=== PATIENT | female | born 1960 | race African-American/Black ===

== ENCOUNTER → 2017-02-15 | Outpatient (CLI) | payer BC ==
[~2017-02-15] VITALS: Ht 157.5 cm; Wt 145.1 kg
[~2017-02-15] MED LIST: ABIL5TAB14 PO; ALBUAER3 INH; ASPI1TAB57 PO; BUPR300T PO; CHLORHEXIDINE GLUCONATE 2 % 1 PACK (2 CLOTHS) TOPICAL PRN; FLUT1INH INH; GLIP10TA6 PO; INSULIN HUMAN REGULAR 1,000 UNITS/10 ML VIAL SQ PRN; LACTATED RINGER'S 1000 ML IV PRN; LIDOCAINE HCL 1% PF 5 ML AMPULE OTHER ONE; LISI40TA PO; METF1000 PO; METOPROLOL TARTRATE 25 MG TAB PO PRN; METOPROLOL TARTRATE 5 MG/5 ML VIAL IV PUSH ONE; POVIDONE IODINE 5% (ANTISEPSIS KIT) 4 APPLICATIONS EACH NARE PRN; PROPOFOL 200 MG/20 ML AMP IV ONE; SODIUM CHLORID 0.9% 500 ML IV PRN; TRAM50TA PO; TRAZ100T10 PO; VICT18IN SQ; VITA100064 PO
[2017-02-15 11:55] LABS: AUTOMATED NEUTROPHIL # 5.5 TH/MM3 (1.8-7.7); BASOPHIL % 0.4 % (0.0-2.0); EOSINOPHIL # 0.2 TH/MM3 (0-0.4); EOSINOPHIL % 2.3 % (0.0-4.0); HEMATOCRIT 36.8 % (35.0-46.0); HEMO FLAGS DIFF FINAL; LYMPH % 26.3 % (9.0-44.0); LYMPHOCYTE # 2.2 TH/MM3 (1.0-4.8); MEAN CELL VOLUME 84.5 FL (80.0-100.0); MEAN CORPUSCULAR HEMOGLOBIN 27.6 PG (27.0-34.0); MEAN CORPUSCULAR HGB CONC 32.7 % (32.0-36.0); PLATELET COUNT 320 TH/MM3 (150-450); RED BLOOD COUNT 4.36 MIL/MM3 (4.00-5.30); RED CELL DISTRIBUTION WIDTH 16.7 % (11.6-17.2); WHITE BLOOD COUNT 8.4 TH/MM3 (4.0-11.0)
[2017-02-15 12:25] LABS: BICARBONATE 30.6 MEQ/L (21.0-32.0)
[2017-02-15 12:26] LABS: POTASSIUM 4.5 MEQ/L (3.5-5.1)
--- NOTE | 2017-02-15 13:14 | GIPROC ---
[facility] [address] [facility]. [facility], [address] EGD PROCEDURE REPORT EXAM DATE: 02/15/2017 PATIENT NAME: Jill Parsons V MR #: [id number] BIRTHDATE: 1960 ATTENDING: Zachery Vaughan MD ORDER #: [id number] TONGUE AND GRO[employer] MACHINE FEEDER: Carmel Haile STATUS: outpatient INDICATIONS: The patient is a 56 yr old female here for an EGD due to heartburn PROCEDURE PERFORMED: EGD w/ biopsy MEDICATIONS: Per Anesthesia and None. TOPICAL ANESTHETIC: none CONSENT: The patient understands the risks and benefits of the procedure and understands that these risks include, but are not limited to: sedation, allergic reaction, infection, perforation and/or bleeding. Alternative means of evaluation and treatment include, among others: physical exam, x-rays, and/or surgical intervention. The patient elects to proceed with this endoscopic procedure. medical equipment was checked for proper function. Hand hygiene and appropriate measures for infection prevention was taken. After the risks, benefits and alternatives of the procedure were thoroughly explained, Informed consent was verified, confirmed and timeout was successfully executed by the treatment team. The patient was anesthetized with anesthesia and the Pentax EG-[id number] endoscope was introduced through the mouth and advanced to the second portion of the duodenum. Small linear ulceration gastritis noted, bx of antrum for h.pylori done. Retroflexed views revealed a small hiatal hernia The gastroscope was then slowly withdrawn and removed. STOMACH: There was mild gastritis in the gastric body. ADVERSE EVENTS: There were no complications. IMPRESSIONS: 1. There was mild gastritis in the gastric body 2. Retroflexed views revealed a hiatal hernia RECOMMENDATIONS: Await biopsy results. Biopsy results will not be ready for 7-10 days. If you don't hear from us in two weeks, call our office for biopsy results. PATIENT CONDITION: fair DISPOSITION: Home REPEAT EXAM: NONE Zachery Vaughan MD eSigned: Zachery Vaughan MD 02/15/2017 1:14 PM cc:
[2017-02-15 13:20] VITALS: BP 118/75; PULSE 91; RESP 20; TEMP 97.6; O2SAT 97
--- NOTE | 2017-02-15 13:56 | EKG ---
Date Performed: 02/15/2017 Time Performed: 11:01:57 PTAGE: 56 years EKG: Sinus rhythm NORMAL ECG INTERPRETATION BASED ON A DEFAULT AGE OF 42 YEARS NO PREVIOUS TRACING DOCTOR: Carl Mayfield Interpretating Date/Time 02/15/2017 13:55:32
== END ==
LOC: HEND 10:39 → EDSTATUS 13:30
PROVIDERS: ATTEND Surgery
DX: K29.00 Acute gastritis without bleeding (principal); K29.50 Unspecified chronic gastritis without bleeding; B96.89 Other specified bacterial agents as the cause of diseases classified elsewhere; R12 Heartburn; Z01.810 Encounter for preprocedural cardiovascular examination
CPT/HCPCS: 00740; 43239; 80048; 85025; 88305; 88312; 93005; J7120

== ENCOUNTER → 2017-06-24 | Outpatient (CLI) | payer BC ==
[~2017-06-24] MED LIST changes: -ASPI1TAB57 PO; -CHLORHEXIDINE GLUCONATE 2 % 1 PACK (2 CLOTHS) TOPICAL PRN; -INSULIN HUMAN REGULAR 1,000 UNITS/10 ML VIAL SQ PRN; -LACTATED RINGER'S 1000 ML IV PRN; -LIDOCAINE HCL 1% PF 5 ML AMPULE OTHER ONE; -METOPROLOL TARTRATE 25 MG TAB PO PRN; -METOPROLOL TARTRATE 5 MG/5 ML VIAL IV PUSH ONE; -POVIDONE IODINE 5% (ANTISEPSIS KIT) 4 APPLICATIONS EACH NARE PRN; -PROPOFOL 200 MG/20 ML AMP IV ONE; -SODIUM CHLORID 0.9% 500 ML IV PRN; -VITA100064 PO
== END ==
LOC: CLAB 07:52
PROVIDERS: ATTEND Nurse Practitioner
DX: A04.8 Other specified bacterial intestinal infections (principal)
CPT/HCPCS: 87338

== ENCOUNTER 2017-07-29 06:58 | Observation (INO) | payer BC, MEDICARE ==
[~2017-07-29] VITALS: Ht 157.5 cm; Wt 145.0 kg
[2017-07-29 07:06] VITALS: BP 156/64; PULSE 75; RESP 18; TEMP 98.3; O2SAT 93
[2017-07-29 07:40] VITALS: BP 164/83; PULSE 63; RESP 17; O2SAT 96
[2017-07-29 07:41] LABS: AUTOMATED NEUTROPHIL # 5.5 TH/MM3 (1.8-7.7); BASOPHIL # 0.1 TH/MM3 (0-0.2); BASOPHIL % 0.8 % (0.0-2.0); EOSINOPHIL # 0.2 TH/MM3 (0-0.4); EOSINOPHIL % 2.1 % (0.0-4.0); HEMOGLOBIN 13.3 GM/DL (11.6-15.3); LYMPH % 25.1 % (9.0-44.0); LYMPHOCYTE # 2.1 TH/MM3 (1.0-4.8); MEAN CELL VOLUME 87.3 FL (80.0-100.0); MEAN CORPUSCULAR HEMOGLOBIN 28.9 PG (27.0-34.0); MEAN CORPUSCULAR HGB CONC 33.1 % (32.0-36.0); MEAN PLATELET VOLUME 8.7 FL (7.0-11.0); MONO % 6.4 % (0.0-8.0); MONOCYTE # 0.5 TH/MM3 (0-0.9); NEUT % 65.6 % (16.0-70.0); PLATELET COUNT 259 TH/MM3 (150-450); RED BLOOD COUNT 4.58 MIL/MM3 (4.00-5.30); RED CELL DISTRIBUTION WIDTH 15.6 % (11.6-17.2); WHITE BLOOD COUNT 8.3 TH/MM3 (4.0-11.0)
--- NOTE | 2017-07-29 07:48 | PD ---
HPI Chief Complaint: Chest Pain Time Seen by Provider: 07:37 Travel History International Travel<30 days: No Contact w/Intl Traveler<30days: No Traveled to known affect area: No History of Present Illness HPI The patient was seen and examined in the presence of the nurse. She complains of chest pain. Location is center sternum. Duration on and off for 1 week. Spells can last an hour or 2. They are not exertional. She describes them primarily as a sharp stabbing pain. However at other times they are more aching. She has minor shortness of breath. She smoked until 8 years ago. Negative stress test 12 years ago but nothing recent. Symptom severity is moderate. No hemoptysis or fever or productive cough. No alleviating factors. No exacerbating factors. PFSH Past Medical History Cancer: No Cardiovascular Problems: No Diabetes: Yes Patient Takes Glucophage: Yes Endocrine: Yes Gastrointestinal Disorders: Yes (GERD) Genitourinary: No Hepatitis: No Hiatal Hernia: No Hypertension: Yes Immune Disorder: No Musculoskeletal: Yes (OA) Neurologic: No Psychiatric: Yes (ANXIETY, DEPRESSION) Reproductive: No Respiratory: Yes (ASTHMA) Thyroid Disease: No Influenza Vaccination: Yes ?: Not Past Surgical History Abdominal Surgery: No AICD: No Body Medical Devices: PLATE LLE Cardiac Surgery: No Ear Surgery: No Endocrine Surgery: No Eye Surgery: No Genitourinary Surgery: No Gynecologic Surgery: Yes (HYSTERECTOMY) Joint Replacement: No Oral Surgery: No Pacemaker: No Thoracic Surgery: No Other Surgery: Yes Social History Alcohol Use: Yes (OCCASIONALLY) Tobacco Use: No (QUIT 8 YEARS AGO) Substance Use: No Allergies-Medications (Allergen,Severity, Reaction): Coded Allergies: flurbiprofen (Verified Allergy, Severe, rash, 02/15/17) Reported Meds & Prescriptions Reported Meds & Active Scripts Active Reported Metoprolol Tartrate 25 Mg Tab 25 Mg PO BID Proair Hfa 8.5 GM Inh (Albuterol Sulfate) 90 Mcg/Act Aer 2 Puff INH Q4-6H PRN 108 mcg/actuation Abilify (Aripiprazole) 5 Mg Tablet 5 Mg PO DAILY Bupropion HCl ER 24 HR (Bupropion HCl) 300 Mg Tab 300 Mg PO DAILY Tramadol (Tramadol HCl) 50 Mg Tab 50 Mg PO Q6H PRN Trazodone (Trazodone HCl) 100 Mg Tablet 100 Mg PO HS PRN Glipizide 10 Mg Tab 10 Mg PO DAILY Take 30 minutes before a meal Metformin (Metformin HCl) 1,000 Mg Tab 1,000 Mg PO BIDPC Lisinopril 40 Mg Tab 40 Mg PO DAILY Breo Ellipta Inh (Fluticasone/Vilanterol) 100-25 Mcg/Act Inh 1 Puff INH DAILY Use daily at the same time. Review of Systems General / Constitutional: No: Fever Eyes: No: Visual changes HENT: No: Headaches Cardiovascular: Positive: Chest Pain or Discomfort Respiratory: Positive: Shortness of Breath Gastrointestinal: No: Abdominal Pain Genitourinary: No: Dysuria Musculoskeletal: No: Pain Skin: No Rash Neurologic: No: Weakness Psychiatric: No: Depression Endocrine: No: Polydipsia Hematologic/Lymphatic: No: Easy Bruising Physical Exam Narrative GENERAL: Morbidly obese well-developed patient in no apparent distress. SKIN: Focused skin assessment reveals no rash and nodules. Skin is Warm and dry. HEAD: Atraumatic. Normocephalic. EYES: Pupils equal and round. No scleral icterus. No injection or drainage. ENT: No nasal bleeding or discharge. Mucous membranes pink and moist. NECK: Trachea midline. No JVD. CARDIOVASCULAR: Regular rate and rhythm. No murmur appreciated. RESPIRATORY: No accessory muscle use. Clear to auscultation. Breath sounds equal bilaterally. GASTROINTESTINAL: Abdomen soft, non-tender, nondistended. Hepatic and splenic margins not palpable. MUSCULOSKELETAL: No obvious deformities. No clubbing. No cyanosis. No edema. NEUROLOGICAL: Awake and alert. No obvious cranial nerve deficits. Motor grossly within normal limits. Normal speech. PSYCHIATRIC: Appropriate mood and affect; insight and judgment normal. Data Data Last Documented VS Vital Signs Date Time Temp Pulse Resp B/P (MAP) Pulse Ox O2 Delivery O2 Flow Rate FiO2 07/29/17 09:21 62 16 161/78 (105) 96 Nasal Cannula 2.00 07/29/17 07:06 98.3 Orders Orders Electrocardiogram (07/29/17 07:26) Complete Blood Count With Diff (07/29/17 07:26) Basic Metabolic Panel (Bmp) (07/29/17 07:26) Ckmb (Isoenzyme) Profile (07/29/17 07:26) Troponin I (07/29/17 07:26) Chest, Single Ap (07/29/17 07:26) Iv Access Insert/Monitor (07/29/17 07:26) Ecg Monitoring (07/29/17 07:26) Oxygen Administration (07/29/17 07:26) Oximetry (07/29/17 07:26) D-Dimer (07/29/17 07:42) Prothrombin Time / Inr (Pt) (07/29/17 07:42) Act Partial Throm Time (Ptt) (07/29/17 07:42) CKMB (07/29/17 07:25) CKMB% (07/29/17 07:25) Ct Pulmonary Angiogram (07/29/17 ) Labs Laboratory Tests Test 07/29/17 07:25 White Blood Count 8.3 TH/MM3 Red Blood Count 4.58 MIL/MM3 Hemoglobin 13.3 GM/DL Hematocrit 40.0 % Mean Corpuscular Volume 87.3 FL Mean Corpuscular Hemoglobin 28.9 PG Mean Corpuscular Hemoglobin Concent 33.1 % Red Cell Distribution Width 15.6 % Platelet Count 259 TH/MM3 Mean Platelet Volume 8.7 FL Neutrophils (%) (Auto) 65.6 % Lymphocytes (%) (Auto) 25.1 % Monocytes (%) (Auto) 6.4 % Eosinophils (%) (Auto) 2.1 % Basophils (%) (Auto) 0.8 % Neutrophils # (Auto) 5.5 TH/MM3 Lymphocytes # (Auto) 2.1 TH/MM3 Monocytes # (Auto) 0.5 TH/MM3 Eosinophils # (Auto) 0.2 TH/MM3 Basophils # (Auto) 0.1 TH/MM3 CBC Comment DIFF FINAL Differential Comment Prothrombin Time 10.4 SEC Prothromb Time International Ratio 1.0 RATIO Activated Partial Thromboplast Time 24.0 SEC D-Dimer Quantitative (PE/DVT) 0.68 MG/L FEU Blood Urea Nitrogen 17 MG/DL Creatinine 0.86 MG/DL Random Glucose 276 MG/DL Calcium Level 8.6 MG/DL Sodium Level 144 MEQ/L Potassium Level 4.1 MEQ/L Chloride Level 104 MEQ/L Carbon Dioxide Level 34.6 MEQ/L Anion Gap 5 MEQ/L Estimat Glomerular Filtration Rate 83 ML/MIN Total Creatine Kinase 118 U/L Creatine Kinase MB 1.6 NG/ML Troponin I LESS THAN 0.02 NG/ML MDM Medical Decision Making Medical Screen Exam Complete: Yes Emergency Medical Condition: Yes Medical Record Reviewed: Yes Differential Diagnosis Differential diagnosis includes KS, angina, pericarditis, pleurisy, GERD, anxiety, pe Narrative Course I have reviewed the patient's electronic medical record. IV placed I reviewed the EKG which is normal I reviewed the chest x-ray shows some cardiomegaly Extended cardiac monitoring shows sinus rhythm without ectopy CBC is normal Metabolic profile shows some hyperglycemia of 276 CK is normal Troponin is normal Coagulation studies are normal D-dimer 0.68 I could not rule out PE and CT pulmonary angiogram was done which is normal and negative for PE Patient has atypical pain and shock full of risk factors for CAD. She is morbidly obese and hypertensive and diabetic and an ex-smoker. She will be a 23 hour observation in the chest pain center in order to rule out cardiac cause of her symptoms Diagnosis Primary Impression: Chest pain Qualified Codes: R07.9 - Chest pain, unspecified Additional Impressions: Morbid obesity with body mass index of 50 or higher Hypertension Qualified Codes: I10 - Essential (primary) hypertension Diabetes Qualified Codes: E11.9 - Type 2 diabetes mellitus without complications Admitting Information Admitting Physician Requests: Observation Matty Corley MD Jul 29, 2017 07:48
[2017-07-29] MEDS ORDERED: METO25TA3 PO (07:54)
[2017-07-29 08:00] LABS: BICARBONATE 34.6 MEQ/L (21.0-32.0); BLOOD UREA NITROGEN 17 MG/DL (7-18); CALCIUM 8.6 MG/DL (8.5-10.1); CHLORIDE 104 MEQ/L (98-107); CREATININE 0.86 MG/DL (0.50-1.00); GLOMERULAR FILTRATION RATE 83 ML/MIN (>89); GLUCOSE,RANDOM 276 MG/DL (74-106); SODIUM (NA) 144 MEQ/L (136-145)
[2017-07-29 08:03] LABS: TROPONIN I LESS THAN 0.02 NG/ML (0.02-0.05)
[2017-07-29 08:12] LABS: PROTHROMBIN TIME - PATIENT 10.4 SEC (9.8-11.6)
[2017-07-29 08:13] LABS: D-DIMER 0.68 MG/L FEU (0.00-0.50)
--- NOTE | 2017-07-29 08:16 | RADRPT ---
EXAM DATE/TIME: 07/29/2017 07:45 [facility] COMPARISON: No previous studies available for comparison. INDICATIONS : Chest pain. MEDICAL HISTORY : None. SURGICAL HISTORY : None. ENCOUNTER: Initial ACUITY: 1 day PAIN SCORE: 4/10 LOCATION: Left chest FINDINGS: There is a poor inspiratory result. The heart is enlarged. Minimal central pulmonary congestion is no yuliana. No focal infiltrate is noted. CONCLUSION: Cardiomegaly and minimal central pulmonary vascular congestion. Poor inspiratory result. Storm Leung MD on July 29, 2017 at 8:12 Board Certified Radiologist. This report was verified electronically.
[2017-07-29] MEDS ORDERED: IOHEXOL 350 MG/ML 10 ML VIAL (for RAD DIAG) IVCONTRAST ONE (08:54)
--- NOTE | 2017-07-29 09:15 | RADRPT ---
EXAM DATE/TIME: 07/29/2017 08:54 [facility] COMPARISON: No previous studies available for comparison. INDICATIONS : Chest pain, shortness of breath IV CONTRAST: 70 cc Omnipaque 350 (iohexol) IV RADIATION DOSE: 22.97 CTDIvol (mGy) MEDICAL HISTORY : Hypertension. Gastroesophageal reflux disease. Diabetes, asthma SURGICAL HISTORY : Hysterectomy. ENCOUNTER: Initial ACUITY: 1 day PAIN SCALE: 6/10 LOCATION: Bilateral chest TECHNIQUE: Volumetric scanning of the chest was performed using a pulmonary embolism protocol MIP images were re constructed. Using automated exposure control and adjustment of the mA and/or kV according to patien t size, radiation dose was kept as low as reasonably achievable to obtain optimal diagnostic quality images. DICOM format image data is available electronically for review and comparison. Follow-up recommendations for detected pulmonary nodules are based at a minimum on nodule size and pa tient risk factors according to Fleischner Society Guidelines. FINDINGS: PULMONARY ARTERIES: No filling defects are seen in the pulmonary arteries through the segmental level. LUNGS: There is no consolidation or pneumothorax . No concerning pulmonary nodule is visualized. PLEURAE: There is no pleural thickening or pleural effusion. MEDIASTINUM: There is good visualization of the great vessels of the middle mediastinum. No evidence of mediastin al or hilar adenopathy/mass. MUSCULOSKELETAL: Within normal limits for patient age. MISCELLANEOUS: The visualized upper abdominal organs demonstrate no acute abnormality. CONCLUSION: Normal examination. Some portions are limited related to body habitus and breathing motion. Jimy Goldman MD on July 29, 2017 at 9:12 Board Certified Radiologist. This report was verified electronically.
[2017-07-29 09:21] VITALS: BP 161/78; PULSE 62; RESP 16; O2SAT 96
[2017-07-29 12:00] VITALS: BP 137/80; PULSE 68; RESP 16; O2SAT 96
[2017-07-29] MEDS ORDERED: ONDANSETRON HCL 4 MG/2 ML VIAL IV PUSH PRN (12:15)
[2017-07-29] MEDS ORDERED: ACETAMINOPHEN 500 MG CPLT PO PRN (12:15)
[2017-07-29] MEDS ORDERED: traMADol HCL 50 MG TAB PO PRN (12:15)
[2017-07-29 12:34] VITALS: O2SAT 95
--- NOTE | 2017-07-29 12:46 | HHI.HP ---
[facility] Primary Care Physician Silverio Hughes MD Chief Complaint Chest pain History of Present Illness This is a 57-year-old female history of hypertension, diabetes, obesity, and hyperlipidemia as well as past history of tobacco abuse with a complaint of a central chest discomfort that has been intermittent for a week. Describes as sharp. Will last 10-15 minutes. Found nothing to bring on the discomfort. Nothing really worsens or improves it. She states that she gets a little short of breath with it and also when she takes a deep breath the discomfort worsens. Denies nausea or diaphoresis. Denies history of CAD. States that she had a stress test in [place] about 12 years ago was okay. Has never had a cardiac catheterization. She was a smoker but quit smoking 8 years ago. She has history of hyperlipidemia but stopped taking the cholesterol medicine a month ago when her insurance will no longer pay for. She has not discussed that with her PCP yet. Denies recent illness. Denies fevers or chills. Review of Systems General: Patient denies fevers, chills, and recent travel. HEENT: Patient denies headache, sore throat, difficulty swallowing. Cardiovascular: Has the chest discomfort as mentioned above. Denies sensation of heart beating rapidly or irregularly. No syncope. Denies diaphoresis. Respiratory: Some mild shortness of breath. Complaint of inspirational chest discomfort. Denies coughing wheezing or hemoptysis. GI: Patient denies nausea, vomiting, diarrhea, abdominal pain, bloody stools. Musculoskeletal: Patient denies joint pain or edema. Denies calf pain or edema. Neurovascular: Patient denies numbness, tingling, weakness in extremities. Denies headache. Endocrine: Denies polyuria and polydipsia. Hematologic: Denies easy bruising. Skin: Denies rash or itching. Past Family Social History Allergies: Coded Allergies: flurbiprofen (Verified Allergy, Severe, rash, 02/15/17) Past Medical History Hypertension, diabetes, hyperlipidemia, obesity, past history of tobacco abuse. Past Surgical History Hysterectomy. Reported Medications Reported Meds & Active Scripts Active Reported Metoprolol Tartrate 25 Mg Tab 25 Mg PO BID Abilify (Aripiprazole) 5 Mg Tablet 5 Mg PO DAILY Bupropion HCl ER 24 HR (Bupropion HCl) 300 Mg Tab 300 Mg PO DAILY Tramadol (Tramadol HCl) 50 Mg Tab 50 Mg PO Q6H PRN Glipizide 10 Mg Tab 10 Mg PO DAILY Take 30 minutes before a meal Metformin (Metformin HCl) 1,000 Mg Tab 1,000 Mg PO BIDPC Lisinopril 40 Mg Tab 40 Mg PO DAILY Breo Ellipta Inh (Fluticasone/Vilanterol) 100-25 Mcg/Act Inh 1 Puff INH DAILY Use daily at the same time. Active Ordered Medications Current Medications Medications (Trade) Dose Ordered Sig/Geraldine Route Start Time Stop Time Status Last Admin (Abilify) 5 mg DAILY PO 07/30/17 09:00 (Wellbutrin Xl 24 Hr) 300 mg DAILY PO 07/30/17 09:00 (Lopressor) 25 mg BID PO 07/29/17 21:00 (Ultram) 50 mg Q6H PRN PO 07/29/17 12:15 (Prinivil) 40 mg DAILY PO 07/30/17 09:00 (Tylenol) 500 mg Q4H PRN PO 07/29/17 12:15 (Zofran Inj) 4 mg Q6H PRN IV PUSH 07/29/17 12:15 Family History Her mother had valvular heart disease Social History Smoking 8 years ago but prior that she smoked about a quarter pack of cigarettes daily for 25 years. Has occasional alcoholic beverage. Denies illicit drugs. Physical Exam Vital Signs Vital Signs Date Time Temp Pulse Resp B/P (MAP) Pulse Ox O2 Delivery O2 Flow Rate FiO2 07/29/17 12:00 68 16 137/80 (99) 96 Nasal Cannula 2.00 07/29/17 09:21 62 16 161/78 (105) 96 Nasal Cannula 2.00 07/29/17 07:45 96 Nasal Cannula 2.00 07/29/17 07:40 63 17 164/83 (110) 96 Nasal Cannula 2.00 07/29/17 07:24 82 16 97 Room Air 07/29/17 07:06 98.3 75 18 156/64 (94) 93 Physical Exam GENERAL: This is a well-nourished, well-developed patient, in no apparent distress. She is obese at 145 kg. Patient speaks in clear complete sentences. Patient is pleasant. HEENT: Head is atraumatic and normocephalic. Neck is supple without lymphadenopathy and trachea is midline. No JVD or carotid bruits. CARDIOVASCULAR: Regular rate and rhythm without murmurs, gallops, or rubs. RESPIRATORY: Clear to auscultation. Breath sounds equal bilaterally. No wheezes , rales, or rhonchi. Chest wall is tender. No use of accessory muscles. GASTROINTESTINAL: Abdomen is nontender, nondistended. Abdomen soft. No obvious pulsatile mass or bruit. No CVA tenderness. Strong femoral pulses bilaterally. Normal bowel sounds in all quadrants. MUSCULOSKELETAL: Patient is moving upper and lower extremities freely. No calf tenderness or edema, no Homans sign. Strong pulses in upper and lower extremities. NEUROLOGICAL: Patient is alert and oriented. Cranial nerves 2-12 are grossly intact. No focal deficits and speech is clear. SKIN: No rash and turgor is normal. Laboratory Laboratory Tests Test 07/29/17 07:25 White Blood Count 8.3 Red Blood Count 4.58 Hemoglobin 13.3 Hematocrit 40.0 Mean Corpuscular Volume 87.3 Mean Corpuscular Hemoglobin 28.9 Mean Corpuscular Hemoglobin Concent 33.1 Red Cell Distribution Width 15.6 Platelet Count 259 Mean Platelet Volume 8.7 Neutrophils (%) (Auto) 65.6 Lymphocytes (%) (Auto) 25.1 Monocytes (%) (Auto) 6.4 Eosinophils (%) (Auto) 2.1 Basophils (%) (Auto) 0.8 Neutrophils # (Auto) 5.5 Lymphocytes # (Auto) 2.1 Monocytes # (Auto) 0.5 Eosinophils # (Auto) 0.2 Basophils # (Auto) 0.1 CBC Comment DIFF FINAL Differential Comment Prothrombin Time 10.4 Prothromb Time International Ratio 1.0 Activated Partial Thromboplast Time 24.0 D-Dimer Quantitative (PE/DVT) 0.68 Blood Urea Nitrogen 17 Creatinine 0.86 Random Glucose 276 Calcium Level 8.6 Sodium Level 144 Potassium Level 4.1 Chloride Level 104 Carbon Dioxide Level 34.6 Anion Gap 5 Estimat Glomerular Filtration Rate 83 Total Creatine Kinase 118 Creatine Kinase MB 1.6 Troponin I LESS THAN 0.02 Result Diagram: 07/29/1772407/29/17724 Imaging Last 48 hours Impressions Chest X-Ray 07/29/17725 Signed Impressions: Service Date/Time: Saturday, July 29, 2017 07:45 - CONCLUSION: Cardiomegaly and minimal central pulmonary vascular congestion. Poor inspiratory result. Storm Leung MD CT Angiography 07/29/17 0000 Signed Impressions: Service Date/Time: Saturday, July 29, 2017 08:54 - CONCLUSION: Normal examination. Some portions are limited related to body habitus and breathing motion. Jimy Goldman MD Course Initial EKG sinus rhythm rate of [address] segment depressions or elevations. Caprini VTE Risk Assessment Caprini VTE Risk Assessment: No/Low Risk (score <= 1) Caprini Risk Assessment Model Point Value = 1 Point Value = 2 Point Value = 3 Point Value = 5 Age 41-60 Minor surgery BMI > 25 kg/m2 Swollen legs Varicose veins or History of unexplained or recurrent spontaneous Oral contraceptives or hormone replacement Sepsis (< 1 month) Serious lung disease, including pneumonia (< 1 month) Abnormal pulmonary function Acute myocardial infarction Congestive heart failure (< 1 month) History of inflammatory bowel disease Medical patient at bed rest Age 61-74 Arthroscopic surgery Major open surgery (> 45 min) Laparoscopic surgery (> 45 min) Malignancy Confined to bed (> 72 hours) Immobilizing plaster cast Central venous access Age >= 75 History of VTE Family history of VTE Factor V Leiden Prothrombin [id number] Lupus anticoagulant Anticardiolipin antibodies Elevated serum homocysteine Heparin-induced thrombocytopenia Other congenital or acquired thrombophilia Stroke (< 1 month) Elective arthroplasty Hip, pelvis, or leg fracture Acute spinal cord injury (< 1 month) Prophylaxis Regimen Total Risk Factor Score Risk Level Prophylaxis Regimen 0-1 Low Early ambulation 2 Moderate Order ONE of the following: *Sequential Compression Device (SCD) *Heparin 5000 units SQ BID 3-4 Higher Order ONE of the following medications: *Heparin 5000 units SQ TID *Enoxaparin/Lovenox 40 mg SQ daily (WT < 150 kg, CrCl > 30 mL/min) *Enoxaparin/Lovenox 30 mg SQ daily (WT < 150 kg, CrCl > 10-29 mL/min) *Enoxaparin/Lovenox 30 mg SQ BID (WT < 150 kg, CrCl > 30 mL/min) AND/OR *Sequential Compression Device (SCD) 5 or more Highest Order ONE of the following medications: *Heparin 5000 units SQ TID (Preferred with Epidurals) *Enoxaparin/Lovenox 40 mg SQ daily (WT < 150 kg, CrCl > 30 mL/min) *Enoxaparin/Lovenox 30 mg SQ daily (WT < 150 kg, CrCl > 10-29 mL/min) *Enoxaparin/Lovenox 30 mg SQ BID (WT < 150 kg, CrCl > 30 mL/min) AND *Sequential Compression Device (SCD) Assessment and Plan Assessment and Plan * Chest pain: Patient has had first set of cardiac enzymes and EKGs. Symptoms are somewhat atypical. Reproducible palpating the area however she has multiple risk factors for CAD. She will be seen by Dr. Ashraf cardiology in the chest pain center. She will undergo a Lexiscan. Patient would be discharged home if her stress test is nonischemic with instructions to follow- up with her PCP. Return to ED for interval issues. * Diabetes: Her glucose was elevated in the ED. She will be on sliding scale insulin coverage. She will need to hold her metformin for 2 days as she has had contrast study. Follow diabetic diet. * Hypertension: Resume medication. * Hyperlipidemia: Patient is discussed this with her PCP. States that her insurance no longer cover her medication. She should be placed on a different medication. * Obesity: Patient has been counseled importance of diet, exercise, and weight loss. Patient is stable at this time. She is agreeable to this plan. Micha Lambert Jul 29, 2017 12:46
[2017-07-29] MEDS ORDERED: DEXTROSE 50% IN WATER 50 ML VIAL(D50) IV PUSH PRN (13:00)
[2017-07-29] MEDS ORDERED: GLUCAGON 1 MG/ML VIAL OTHER PRN (13:00)
[2017-07-29] MEDS ORDERED: REGADENOSON INJ 0.4 MG/5 ML SYR ONE (13:24)
--- NOTE | 2017-07-29 13:51 | EKG ---
Date Performed: 07/29/2017 Time Performed: 07:15:59 PTAGE: 57 years EKG: Sinus rhythm NORMAL ECG PREVIOUS TRACING : 02/15/2017 11.01 Since the previous tracing, no significant change noted DOCTOR: Ashwin Mullins Interpretating Date/Time 07/29/2017 13:47:55
--- NOTE | 2017-07-29 14:12 | TR ---
Date Performed: 07/29/2017 Time Performed: 13:42:02 DOCTOR: Angel Ashraf DRUG LIST: CLINICAL HISTORY: REASON FOR TEST: REASON FOR ENDING: OBSERVATION: CONCLUSION: COMMENTS: Lexiscan stress test was performed under standard four minute protocol. Radionuclide was injected one minute prior to ending the test. No electrocardiographic abormalities were present t o suggest ischemia. Nuclear imaging and interpretation are pending.
--- NOTE | 2017-07-29 14:20 | HHI.DCPOC ---
Discharge Care Plan Diagnosis: (1) Chest pain (2) DM (diabetes mellitus) (3) Obesity (4) Hyperlipidemia (5) Hypertension Goals to Promote Your Health * To prevent worsening of your condition and complications * To maintain your health at the optimal level Directions to Meet Your Goals Take your medications as prescribed Follow your dietary instruction Follow activity as directed Keep your appointments as scheduled Take your immunizations and boosters as scheduled If your symptoms worsen call your PCP, if no PCP go to Urgent Care Center or Emergency Room Smoking is Dangerous to Your Health. Avoid second hand smoke Call the 24-hour hour crisis hotline for domestic abuse at Micha Lambert Jul 29, 2017 14:20
--- NOTE | 2017-07-29 15:32 | RADRPT ---
EXAM DATE/TIME: 07/29/2017 13:09 [place] COMPARISON: No previous studies available for comparison. INDICATIONS : Midsternal chest pain. Angina. DOSE: 35.0 mCi Tc99m Myoview at stress. 11.0 mCi Tc99m Myoview at rest. 0.4 mg Lexiscan STRESS SYMPTOMS: Short of breath. EJECTION FRACTION: 64% MEDICAL HISTORY : Hypertension. Diabetes mellitus type 2. SURGICAL HISTORY : Hysterectomy. ENCOUNTER: Initial ACUITY: 1 week PAIN SCALE: 4/10 LOCATION: Midsternal chest TECHNIQUE: The patient underwent pharmacologic stress with infusion of prescribed dose. Continuous ECG tracing was monitored during stress. Gated SPECT imaging was performed after stress and conventional SPECT i maging was performed at rest. The examination was performed on a SPECT/CT scanner, both attenuation and non-corrected datasets were reviewed. FINDINGS: DISTRIBUTION: The maximum perfused segment at stress is in the anterior wall. PERFUSION STUDY: The pattern of perfusion at stress is within normal limits. GATED STUDY: There is intact wall motion and thickening without hypokinetic or dyskinetic segments. CONCLUSION: 1. Unremarkable myocardial perfusion scan. RISK CATEGORY: Low (<1% Annual Mortality Rate) Ashwin Houston MD on July 29, 2017 at 15:20 Board Certified Radiologist. This report was verified electronically.
[2017-07-29 15:44] VITALS: BP 158/87; PULSE 72; RESP 16; TEMP 97.7; O2SAT 98
[2017-07-29] MEDS ORDERED: KETOROLAC TROMETHAMINE 30 MG/ML (IVP) VIAL IV PUSH ONE (16:15)
[2017-07-29] MEDS ORDERED: INSULIN ASPART SUPPLEMENTAL SCALE SQ SCH (17:00)
[2017-07-29] MEDS ORDERED: METOPROLOL TARTRATE 25 MG TAB PO SCH (21:00)
[2017-07-30] MEDS ORDERED: ARIPiprazole 5 MG TAB PO SCH (09:00)
[2017-07-30] MEDS ORDERED: LISINOPRIL 20 MG TAB PO SCH (09:00)
[2017-07-30] MEDS ORDERED: buPROPion HCL 150 MG EXTENDED RELEASE TAB PO SCH (09:00)
== END 2017-07-29 16:17 | disposition home or self-care (01) ==
LOC: NEPC 06:58 → NEDA 11:40 → NEPFCDU 15:13
DX: R07.89 Other chest pain (principal); E11.9 Type 2 diabetes mellitus without complications; E78.5 Hyperlipidemia, unspecified; I10 Essential (primary) hypertension; J45.909 Unspecified asthma, uncomplicated; I20.9 Angina pectoris, unspecified; E66.9 Obesity, unspecified; R06.02 Shortness of breath; Z87.891 Personal history of nicotine dependence
CPT/HCPCS: 71045; 71275; 78452; 80048; 82550; 82552; 84484; 85025; 85379; 85610; 85730; 93005; 93017; 99285; A9502; G0378; J2785; Q9967